=== PATIENT | female | born 1990 | race Two or more races ===

== ENCOUNTER 2025-04-20 17:07 | Emergency (ER) | payer MEDICAID ==
[~2025-04-20] VITALS: Ht 162.6 cm; Wt 72.5 kg
[2025-04-20 17:11] VITALS: TEMP 36.6; O2SAT 100
[2025-04-20 18:48] LABS: BASOPHILS % 0.7 % (0.0-2.0); DIFFERENTIAL COMMENT 0; EOSINOPHILS % 1.7 % (0.0-5.0); HEMOGLOBIN. 12.2 g/dL (12.0-16.0); LYMPHOCYTES % 31.7 % (20.0-50.0); MEAN CORPUSCULAR HEMOGLOBIN 25.5 pg (28.0-32.0); MEAN CORPUSCULAR HGB CONC 33.1 g/dL (31.0-37.0); MEAN CORPUSCULAR VOLUME 77.1 fL (81.0-99.0); MEAN PLATELET VOLUME 8.9 fl (7.4-10.4); MONOCYTES % 7.8 % (2.0-8.0); NEUTROPHILS % 58.1 % (40.0-76.0); PLATELET 273 x1000/uL (130-400); RED CELL DISTRIBUTION WIDTH 14.7 % (11.6-14.6); WHITE BLOOD COUNT 6.5 x1000/uL (4.5-11.0)
[2025-04-20 18:51] LABS: CHLORIDE 107 mEq/L (98-107); POTASSIUM 5.1 mEq/L (3.5-5.1); SODIUM 139 mEq/L (136-145)
[2025-04-20 18:52] LABS: CALCIUM 9.5 mg/dL (8.7-10.4); CARBON DIOXIDE 22 mEq/L (21-32)
[2025-04-20 18:57] LABS: CREATININE 0.8 mg/dL (0.6-1.0); GLUCOSE 110 mg/dL (70-105); PROTHROMBIN TIME 10.5 sec (9.6-11.0); UREA NITROGEN BLOOD 15 mg/dL (9-23)
[2025-04-20 19:11] LABS: HCG SCREEN NEGATIVE
[2025-04-20] MEDS ORDERED: ONDA-239 PO ×2 (19:51→20:41)
[2025-04-20] MEDS: ONDANSETRON 4MG ODT PO ONE (20:00)
[2025-04-20 20:05] LABS: CLARITY URINE CLOUDY (CLEAR); COLOR URINE YELLOW (YELLOW); GLUCOSE URINE NEGATIVE (NEGATIVE); KETONES URINE NEGATIVE (NEGATIVE); LEUKOCYTE ESTERASE URINE TRACE (NEGATIVE); NITRITE URINE NEGATIVE (NEGATIVE); OCCULT BLOOD URINE TRACE (NEGATIVE); PROTEIN URINE NEGATIVE (NEGATIVE); SPECIFIC GRAVITY URINE 1.025 (1.005-1.030); UROBILINOGEN URINE 0.2 E.U./dL (0.2-1.0)
[2025-04-20 20:22] LABS: BACTERIA URINE 1+; SQUAMOUS EPITHELIAL CELL URINE FEW /lpf (RARE/1+)
[2025-04-20] MEDS ORDERED: NITR100C MT (20:41)
[2025-04-20 21:02] VITALS: BP 124/78; PULSE 68; RESP 16; O2SAT 99
== END 2025-04-20 21:03 | disposition home or self-care (01) ==
LOC: ER 17:07
DX: R11.2 Nausea with vomiting, unspecified (principal); H00.014 Hordeolum externum left upper eyelid; Z79.899 Other long term (current) drug therapy
CPT/HCPCS: 99283; 80048; 81003; 81025; 84703; 83690; 85025; 85610; 36415; Q0162